=== PATIENT | female | born 1950 | race Caucasian/White ===

== ENCOUNTER → 2024-06-28 | Outpatient (REF) | payer MEDICARE | LOC: MAMMO 10:14 | PROVIDERS: ATTEND Family Medicine | DX: Z12.31 Encounter for screening mammogram for malignant neoplasm of breast (principal) | CPT/HCPCS: 77067 ==

== ENCOUNTER → 2024-12-01 | Day surgery (SDC) | payer MEDICARE ==
[2024-11-27 12:31] LABS: BASOPHILS # (AUTO) 0.1 (0.0-0.1); BASOPHILS % 0.9 % (0.0-1.0); EOSINOPHILS # (AUTO) 0.6 (0.0-0.4); HEMATOCRIT 45.9 % (34.2-44.1); HEMOGLOBIN 15.7 g/dL (12.0-16.0); LYMPHOCYTES # (AUTO) 2.1 (1.0-3.2); LYMPHOCYTES % 27.2 % (18.0-39.1); MEAN CORPUSCULAR HGB CONC 34.2 g/dL (31-35); MEAN CORPUSCULAR VOLUME 90.5 fL (81-99); MONOCYTES # (AUTO) 0.9 (0.2-0.8); MONOCYTES % 11.9 % (4.4-11.3); NEUTROPHILS # (AUTO) 3.9 (2.1-6.9); NEUTROPHILS % 51.7 % (38.7-80.0); PLATELET COUNT 322 x10e3/uL (140-360); RED BLOOD COUNT 5.07 x10e6/uL (3.6-5.1); RED CELL DISTRIBUTION WIDTH 13.4 % (11.7-14.4); WHITE BLOOD COUNT 7.58 x10e3/uL (4.8-10.8)
[~2024-12-01] MED LIST: ALLEGRA ALLERGY60 MG PO; ALLOPURINOL100 MG PO; ASPIRIN81 MG PO; BREO ELLIPTA 21 EACH INH; BUPROPION HCL100 MG PO; FENTANYL CITRATE/PF 100MCG/2 ML INJ ONE; GABAPENTIN100 MG PO; GLUCAGON FOR INJ 1 MG VIAL ONE; MONTELUKAST SOD10 MG PO; PROAIR DIGIHAL90 MCG INH; PROPOFOL IV EMULSION 10 MG/ML 20 ML VIAL ONE; VALSARTAN-HCTZ1 EAC1 PO; VITAMIN D3125 MCG PO; VITAMIN E400 UNI1 PO
[2024-12-01] MEDS: LACTATED RINGER'S 1,000 ML ONE (11:14)
[2024-12-01 11:45] VITALS: TEMP 98.1
[2024-12-01 12:15] VITALS: BP 150/78; PULSE 78; RESP 16; O2SAT 98
== END | disposition home or self-care (01) ==
LOC: OR 08:21
PROVIDERS: ATTEND Internal Medicine Gastroenterology
DX: R19.5 Other fecal abnormalities (principal); D12.0 Benign neoplasm of cecum; K57.30 Diverticulosis of large intestine without perforation or abscess without bleeding; K64.8 Other hemorrhoids; G47.33 Obstructive sleep apnea (adult) (pediatric); I10 Essential (primary) hypertension; E78.5 Hyperlipidemia, unspecified; J44.9 Chronic obstructive pulmonary disease, unspecified; E66.01 Morbid (severe) obesity due to excess calories; M19.90 Unspecified osteoarthritis, unspecified site; F32.A Depression, unspecified; Z01.812 Encounter for preprocedural laboratory examination; Z79.82 Long term (current) use of aspirin; Z79.899 Other long term (current) drug therapy
CPT/HCPCS: 36415; 45385; 85025; J1610; J2704; J3010; J7121; 45378

== ENCOUNTER → 2025-07-03 | Outpatient (REF) | payer MEDICARE ==
[~2025-07-03] MED LIST changes: -FENTANYL CITRATE/PF 100MCG/2 ML INJ ONE; -GLUCAGON FOR INJ 1 MG VIAL ONE; -PROPOFOL IV EMULSION 10 MG/ML 20 ML VIAL ONE
== END ==
LOC: MAMMO 08:53
PROVIDERS: ATTEND Family Medicine
DX: Z12.31 Encounter for screening mammogram for malignant neoplasm of breast (principal)
CPT/HCPCS: 77067